=== PATIENT | male | born 1940 | race Caucasian/White ===

== ENCOUNTER → 2017-06-02 | Outpatient (CLI) | payer OTHER ==
--- NOTE | 2017-06-02 16:04 | PCVCIMAG ---
APPROVED REPORT Study performed: 06/02/2017 14:11:28 EXAM: Comprehensive 2D, Doppler, and color-flow Echocardiogram Patient Location: Echo lab Status: routine BSA: 1.97 HR: 61 bpmBP: 158/90 mmHg Rhythm: NSR Other Information Study Quality: Good Indications Aortic Valve Disease Hypertension/HDD Hyperlipidemia. 2D Dimensions IVSd: 11.93 (7-11mm)LVOT Diam: 22.72 (18-24mm) LVDd: 43.68 mm PWd: 10.03 (7-11mm)Ascending Ao: 39.17 (22-36mm) LVDs: 34.14 (25-40mm) Left Atrium: 35.63 (27-40mm) Aortic Root: 34.60 mm LV Single Plane 4CH: 52.48 % LV Single Plane 2CH: 53.36 %Hayes's LVEF: 52.92 % Biplane EF: 53.0 % Volumes Left Atrial Volume (Systole) Single Plane 4CH: 44.08 mLSingle Plane 2CH: 43.49 mL LA ESV Index: 24.00 mL/m2 Aortic Valve AoV Peak Celestino.: 1.64 m/s AO Peak Gr.: 10.72 mmHgLVOT Max P.60 mmHg LVOT Max V: 1.07 m/s BOOKER Vmax: 2.65 cm2 AI Vmax: 3.16 m/s AI [place]: 1.49 m/s2 AI PHT: 801.39 ms Mitral Valve E/A Ratio: 0.9 MV Decel. Time: 239.04 ms MV E Max Celestino.: 0.80 m/s MV A Celestino.: 0.87 m/s MV PHT: 69.32 ms Pulmonary Valve PV Peak Gr.: 2.81 mmHg Tricuspid Valve TR Peak Celestino.: 2.50 m/s TR Peak Gr.: 25.03 mmHg Left Ventricle The left ventricle is normal size. There is normal LV segmental wall motion. There is normal left ventricular wall thickness. Left ventricular systolic function is normal. The left ventricular ejection fraction is within the normal range. LVEF is 55-60%. Mild diastolic dysfunction Right Ventricle The right ventricle is normal size. The right ventricular systolic function is normal. Atria The left atrium size is normal. The right atrium size is normal. Aortic Valve Trileaflet, moderately calcified Mild aortic regurgitation. There is no aortic valvular stenosis. Mitral Valve The mitral valve is normal in structure. Mild mitral regurgitation. No evidence of mitral valve stenosis. Tricuspid Valve The tricuspid valve is normal in structure. Trace tricuspid regurgitation. Pulmonary artery pressure is 30mmHg. Pulmonic Valve The pulmonary valve is normal in structure. There is no pulmonic valvular regurgitation. Great Vessels The aortic root is normal in size. IVC is normal in size and collapses with >50% inspiration Pericardium There is no pericardial effusion. <Conclusion> Left ventricular systolic function is normal. There is normal LV segmental wall motion. LVEF is 55-60%. Mild diastolic dysfunction Trileaflet, moderately calcified. No aortic valvular stenosis, mild insufficiency. The mitral valve is normal in structure. Mild mitral regurgitation. Pulmonary artery pressure [id number] There is no pericardial effusion.
== END | disposition home or self-care (01) ==
LOC: PCVCIMAG 13:35
PROVIDERS: ATTEND Internal Medicine
DX: I08.0 Rheumatic disorders of both mitral and aortic valves (principal); I10 Essential (primary) hypertension; E78.5 Hyperlipidemia, unspecified; R94.31 Abnormal electrocardiogram [ECG] [EKG]; Z79.82 Long term (current) use of aspirin; Z79.899 Other long term (current) drug therapy
CPT/HCPCS: 80061; 93005; 93306; G0463

== ENCOUNTER → 2018-05-26 | Outpatient (CLI) | payer OTHER | END | disposition home or self-care (01) | LOC: PCVCCLINIC 16:00 | PROVIDERS: ATTEND Internal Medicine | DX: I35.1 Nonrheumatic aortic (valve) insufficiency (principal); I10 Essential (primary) hypertension; E78.5 Hyperlipidemia, unspecified; Z79.82 Long term (current) use of aspirin; Z88.8 Allergy status to other drugs, medicaments and biological substances | CPT/HCPCS: 93005; G0463 ==

== ENCOUNTER → 2019-05-29 | Outpatient (CLI) | payer OTHER | END | disposition home or self-care (01) | LOC: PCVCCLINIC 13:00 | PROVIDERS: ATTEND Internal Medicine | DX: I35.1 Nonrheumatic aortic (valve) insufficiency (principal); I10 Essential (primary) hypertension; R94.31 Abnormal electrocardiogram [ECG] [EKG]; E78.00 Pure hypercholesterolemia, unspecified; E78.5 Hyperlipidemia, unspecified; Z82.49 Family history of ischemic heart disease and other diseases of the circulatory system; Z83.6 Family history of other diseases of the respiratory system; Z88.5 Allergy status to narcotic agent | CPT/HCPCS: 93005; G0463 ==